=== PATIENT | female | born 1945 | race Caucasian/White ===

== ENCOUNTER 2017-06-08 10:28 | Inpatient (IN) | payer OTHER ==
[~2017-06-08] VITALS: Ht 152.4 cm; Wt 68.0 kg
[~2017-06-08 10:28] MED LIST: INTESTINEX680 MG PO; TRAM1TAB98 PO
[2017-06-08] MEDS ORDERED: PRILOSEC OTC20 MG PO (11:44)
[2017-06-16] MEDS ORDERED: BACTRIM DS TAB1 EACH PO ×2 (12:09)
[2017-06-16] MEDS ORDERED: ULTRACET PO ×2 (12:10)
[2017-06-16] MEDS ORDERED: INTESTINEX680 M1 PO ×2 (12:10)
[2017-06-16] MEDS ORDERED: INTEGRA F CAPS1 EACH PO ×2 (12:10)
== END 2017-06-16 14:10 | disposition home or self-care (01) | DRG 330 ==
LOC: ADM 12:45 → EDSTATUS 12:45 → SURG 06-13 06:25 → O/R 06-13 06:25 → SURG 06-13 09:15
PROVIDERS: Surgery
PROC: 0WUF4JZ Supplement Abdominal Wall with Synthetic Substitute, Percutaneous Endoscopic Approach (ICD-10-PCS; 2017-06-13)
PROC: 0DNW4ZZ Release Peritoneum, Percutaneous Endoscopic Approach (ICD-10-PCS; 2017-06-13)
PROC: 0DN84ZZ Release Small Intestine, Percutaneous Endoscopic Approach (ICD-10-PCS; 2017-06-13)
PROC: 0DTN4ZZ Resection of Sigmoid Colon, Percutaneous Endoscopic Approach (ICD-10-PCS; 2017-06-13)
PROC: 0DJD8ZZ Inspection of Lower Intestinal Tract, Via Natural or Artificial Opening Endoscopic (ICD-10-PCS; 2017-06-13)
PROC: 0DQN4ZZ Repair Sigmoid Colon, Percutaneous Endoscopic Approach (ICD-10-PCS; principal; 2017-06-13 09:15)
DX: K57.20 Diverticulitis of large intestine with perforation and abscess without bleeding (principal); K43.3 Parastomal hernia with obstruction, without gangrene; K68.11 Postprocedural retroperitoneal abscess; E11.9 Type 2 diabetes mellitus without complications; L80 Vitiligo; G58.8 Other specified mononeuropathies; Z43.3 Encounter for attention to colostomy; B96.20 Unspecified Escherichia coli [E. coli] as the cause of diseases classified elsewhere; B95.2 Enterococcus as the cause of diseases classified elsewhere; B37.2 Candidiasis of skin and nail

== ENCOUNTER 2017-06-09 06:15 | Day surgery (SDC) | payer OTHER ==
[~2017-06-09 06:15] MED LIST changes: +PRILOSEC OTC20 MG PO
== END 2017-06-09 11:50 | disposition home or self-care (01) ==
LOC: AMB-ENDOS 06:15
DX: K43.5 Parastomal hernia without obstruction or gangrene (principal); Z85.048 Personal history of other malignant neoplasm of rectum, rectosigmoid junction, and anus